=== PATIENT | female | born 1960 | race African-American/Black ===

== ENCOUNTER 2021-07-21 01:40 | Emergency (ER) | payer OTHER, MEDICAID ==
[~2021-07-21] VITALS: Ht 177.8 cm; Wt 82.0 kg
[2021-07-21] MEDS ORDERED: SODIUM CHLORIDE 0.9% 1,000 ML IV ONE (02:15)
[2021-07-21 04:25] LABS: BASOPHILS % 0.4 % (0.0-2.0); EOSINOPHILS % 0.3 % (0.0-5.0); HEMATOCRIT. 41.6 % (36.0-48.0); HEMOGLOBIN. 13.8 g/dL (12.0-16.0); LYMPHOCYTES % 14.4 % (20.0-50.0); MEAN CORPUSCULAR HEMOGLOBIN 29.5 pg (28.0-32.0); MONOCYTES % 4.8 % (2.0-8.0); NEUTROPHILS % 80.1 % (40.0-76.0); PLATELET 292 x1000/uL (130-400); RED BLOOD CELL COUNT 4.68 mill/uL (4.2-5.4); RED CELL DISTRIBUTION WIDTH 13.7 % (11.6-14.6)
[2021-07-21 04:30] LABS: CHLORIDE 106 mEq/L (98-107)
[2021-07-21 04:34] LABS: ETHANOL BLOOD < 10 mg/dL
[2021-07-21] MEDS ORDERED: POTASSIUM CHLORIDE 20MEQ TABLET SR PO ONE (04:45)
[2021-07-21 10:26] VITALS: BP 140/83
== END 2021-07-21 11:20 | disposition short-term general hospital (02) ==
LOC: ER 01:40
DX: R42 Dizziness and giddiness (principal); E11.9 Type 2 diabetes mellitus without complications; F32.A Depression, unspecified; E87.6 Hypokalemia; Z20.822 Contact with and (suspected) exposure to COVID-19; F10.10 Alcohol abuse, uncomplicated; Y90.0 Blood alcohol level of less than 20 mg/100 ml
CPT/HCPCS: 36415; 70450; 71045; 80053; 80320; 82140; 83880; 84484; 85025; 87426; 93005; 96360; 99285; J7030; G0480

== ENCOUNTER 2025-07-28 14:06 | Emergency (ER) | payer OTHER, MEDICAID ==
[~2025-07-28] VITALS: Ht 167.6 cm; Wt 80.0 kg
[2025-07-28 14:12] VITALS: O2SAT 98
[2025-07-28] MEDS ORDERED: GABA-529 MT (14:16)
[2025-07-28] MEDS ORDERED: HYDROCODONE/ACETAMINOPHEN 5/325MG TABLET PO ONE (15:15)
[2025-07-28] MEDS: IBUPROFEN 400MG TABLET PO ONE (15:30)
[2025-07-28] MEDS: HYDROCODONE/ACETAMINOPHEN 5/325MG TABLET PO ONE (16:30)
[2025-07-28 16:50] VITALS: BP 160/87; PULSE 65; RESP 18; TEMP 36.5; O2SAT 98
== END 2025-07-28 16:54 | disposition left against medical advice (07) ==
LOC: ER 14:06
DX: G89.29 Other chronic pain (principal); M25.551 Pain in right hip; F10.90 Alcohol use, unspecified, uncomplicated; M16.11 Unilateral primary osteoarthritis, right hip; Z96.641 Presence of right artificial hip joint; W01.0XXA Fall on same level from slipping, tripping and stumbling without subsequent striking against object, initial encounter; Y93.89 Activity, other specified; Y92.89 Other specified places as the place of occurrence of the external cause; Y99.8 Other external cause status; Y90.9 Presence of alcohol in blood, level not specified
CPT/HCPCS: 73502; 99283